=== PATIENT | male | born 1935 ===

== ENCOUNTER 2020-06-08 14:17 | Outpatient (REF) | payer MEDICARE, OTHER, SELFPAY ==
[2020-06-08 19:37] LABS: HCT 40.8 % (40.0-50.0); MCH 31.9 pg (27.0-33.0); MCHC 31.9 % (32.0-36.0); MPV 9.9 fL (8.0-11.0); Platelet Count 228 10^3/uL (130-400); RBC 4.08 10^6/uL (4.36-5.78); RDW 12.3 % (11.8-14.1); RDW-SD 45.9 fL; WBC 8.49 10^3/uL (4.4-10.8)
[2020-06-08 19:41] LABS: ALT 21 U/L (16-63); AST 17 U/L (15-37); Albumin 3.9 g/dL (3.4-5.0); Alkaline Phosphatase 67 U/L (46-116); Anion Gap 8.8 mmol/L (3-11); BUN 41 mg/dL (7-18); Bilirubin, Total 0.2 mg/dL (0.2-1.0); CO2 22.2 mmol/L (21.0-32.0); CREATININE 1.89 mg/dL (0.70-1.30); Calculated LDL 49 mg/dL (<100); Chloride 109 mmol/L (98-107); Cholesterol 119 mg/dL (<200); Estimated GFR 34.32 (mL/min/1.73m2); Glucose 109 mg/dL (74-106); HDL Cholesterol 25 mg/dL (40-60); Potassium 5.1 mmol/L (3.5-5.1); Sodium 140 mmol/L (136-145); Total Protein 6.8 g/dL (6.4-8.2); Triglyceride 225 mg/dL (<150)
[2020-06-08 21:34] LABS: Hemoglobin A1C 6.2 % (3.8-5.6)
[2020-06-11 05:23] LABS: Vitamin D 25 Total 16.4 ng/ml (30-100)
== END 2020-06-08 14:37 ==
LOC: NCHCN 14:17
PROVIDERS: PCP Physician Assistant; Visit Provider Physician Assistant
DX: R73.03 Prediabetes (principal); N28.9 Disorder of kidney and ureter, unspecified; E78.5 Hyperlipidemia, unspecified
CPT/HCPCS: 80053; 80061; 82306; 85027; 83036

== ENCOUNTER 2021-02-26 19:12 | Outpatient (REF) | payer MEDICARE, SELFPAY ==
[2021-02-26 19:04] LABS: Hemoglobin A1C 5.8 % (<5.7)
[2021-02-26 19:05] LABS: ALT 19 U/L (16-63); AST 18 U/L (15-37); Albumin 4.1 g/dL (3.4-5.0); Alkaline Phosphatase 62 U/L (46-116); Anion Gap 10.1 mmol/L (3-11); BUN 24 mg/dL (7-18); Bilirubin, Total 0.3 mg/dL (0.2-1.0); CO2 25.9 mmol/L (21.0-32.0); CREATININE 1.5 mg/dL (0.70-1.30); Calcium 9.1 mg/dL (8.5-10.1); Chloride 109 mmol/L (98-107); Estimated GFR 44.69 (mL/min/1.73m2); Glucose 81 mg/dL (74-106); Potassium 4.9 mmol/L (3.5-5.1); Sodium 145 mmol/L (136-145); Total Protein 7.4 g/dL (6.4-8.2)
== END 2021-02-26 19:13 | disposition home or self-care (01) ==
LOC: NCHCN 19:12
PROVIDERS: PCP Physician Assistant; Visit Provider Physician Assistant
DX: R73.03 Prediabetes (principal); N28.89 Other specified disorders of kidney and ureter
CPT/HCPCS: 80053; 83036

== ENCOUNTER 2022-01-20 18:20 | Outpatient (REF) | payer OTHER, SELFPAY ==
[2022-01-20 18:36] LABS: HGB 12.7 g/dL (13.5-17.5); MCH 31.6 pg (27.0-33.0); MCHC 31.8 % (32.0-36.0); MCV 99.5 fL (80-95); MPV 9.7 fL (8.0-11.0); Platelet Count 196 10^3/uL (130-400); RBC 4.02 10^6/uL (4.36-5.78); RDW 12.5 % (11.8-14.1); RDW-SD 46.1 fL; WBC 6.55 10^3/uL (4.4-10.8)
[2022-01-20 18:41] LABS: Anion Gap 12.8 mmol/L (3-11); BUN 43 mg/dL (7-18); CO2 21.2 mmol/L (21.0-32.0); Calcium 9.2 mg/dL (8.5-10.1); Chloride 107 mmol/L (98-107); Estimated GFR 31.99 (mL/min/1.73m2); Glucose 92 mg/dL (74-106); Potassium 5.4 mmol/L (3.5-5.1); Sodium 141 mmol/L (136-145)
[2022-01-20 19:53] LABS: Hemoglobin A1C 6.1 % (<5.7)
== END 2022-01-20 18:21 | disposition home or self-care (01) ==
LOC: NCHCN 18:20
PROVIDERS: PCP Physician Assistant; Visit Provider Physician Assistant
DX: R73.03 Prediabetes (principal); E78.5 Hyperlipidemia, unspecified; N28.9 Disorder of kidney and ureter, unspecified; I10 Essential (primary) hypertension
CPT/HCPCS: 80048; 85027; 83036

== ENCOUNTER 2022-02-19 15:00 | Outpatient (REF) | payer OTHER, SELFPAY ==
[2022-02-19 15:47] LABS: Abs Immature Grans 0.04 10^3/uL (0.0-0.06); Absolute Basophil Count 0.04 10^3/uL (0.0-0.2); Absolute Eosinophil Count 0.27 10^3/uL (0.0-0.7); Absolute Lymphocyte Count 1.59 10^3/uL (1.2-3.4); Absolute Monocyte Count 0.88 10^3/uL (0.1-0.8); Absolute Neutrophil Count 3.98 10^3/uL (1.2-6.7); Basophils % 0.6; HCT 37.6 % (40.0-50.0); Immature Grans % 0.6; Lymphocytes % 23.4; MCHC 31.9 % (32.0-36.0); MCV 100.3 fL (80-95); MPV 9.7 fL (8.0-11.0); Monocytes % 12.9; Neutrophils % 58.5; Nucleated RBC 0 %; Platelet Count 177 10^3/uL (130-400); RBC 3.75 10^6/uL (4.36-5.78)
[2022-02-19 15:54] LABS: ALT 24 U/L (16-63); AST 17 U/L (15-37); Albumin 4.4 g/dL (3.4-5.0); Alkaline Phosphatase 63 U/L (46-116); Anion Gap 13.1 mmol/L (3-11); BUN 57 mg/dL (7-18); Bilirubin, Total 0.3 mg/dL (0.2-1.0); CO2 18.9 mmol/L (21.0-32.0); CREATININE 2.2 mg/dL (0.70-1.30); Calcium 9.2 mg/dL (8.5-10.1); Chloride 109 mmol/L (98-107); Estimated GFR 28.66 (mL/min/1.73m2); Glucose 109 mg/dL (74-106); Potassium 5.1 mmol/L (3.5-5.1); Sodium 141 mmol/L (136-145); Total Protein 7.5 g/dL (6.4-8.2)
== END 2022-02-19 15:01 | disposition home or self-care (01) ==
LOC: LBN 15:00
PROVIDERS: PCP Physician Assistant; Visit Provider Physician Assistant Medical
DX: R22.42 Localized swelling, mass and lump, left lower limb (principal); M79.89 Other specified soft tissue disorders
CPT/HCPCS: 80053; 85025

== ENCOUNTER 2022-02-19 15:26 | Outpatient (CLI) | payer OTHER, SELFPAY ==
--- NOTE | 2022-02-19 | DI.US_ITS ---
Exam(s) US LOWER EXTREMITY VENOUS LT EXAM: US LOWER EXTREMITY VENOUS LT CLINICAL HISTORY: LT LEG SWELLING M79.89, ? DVT. TECHNIQUE: Lower extremity venous ultrasound performed using grayscale, color-flow, and spectral Do ppler analysis. COMPARISON: No exams were available for comparison FINDINGS: The common femoral, femoral and popliteal veins demonstrate normal compressibility, augmentation, and color Doppler. The posterior tibial veins are patent. No saphenous vein thrombosis or other superfi cial venous thrombosis is seen. No hematoma or Coley's cyst is seen. IMPRESSION: Negative lower extremity ultrasound. No evidence of DVT. DATA REPOSITORY:
== END 2022-02-19 15:46 ==
PROVIDERS: PCP Physician Assistant; Visit Provider Physician Assistant Medical
DX: R22.42 Localized swelling, mass and lump, left lower limb (principal); M79.89 Other specified soft tissue disorders
CPT/HCPCS: 93971